=== PATIENT | female | born 1995 | race Hispanic/Latino ===

== ENCOUNTER 2018-04-20 13:51 | Inpatient (IN) | payer MEDICAID ==
[2018-04-20 13:59] VITALS: BMI 25.4
--- NOTE | 2018-04-20 14:03 | ED PDOC ---
Arrival/HPI - General Time Seen by Provider: 04/20/18 13:59 Historian: Patient - History of Present Illness Narrative History of Present Illness (Text): 04/20/18 14:30 22 year old female, whose PMH includes Crohns disease, who presents to the emergency department complaining of abdominal pain, mainly on the epigastric and lower abdominal region since 4 days. Patient associates this symptom with hematochezia and nausea, which is common for her due to PMH of Crohn's disease. Patient notes taking Prednisone daily and took Motrin this morning at 9 AM. Patient denies any vomiting, chest pain, shortness of breath, fever, chills, dysuria, hematuria, or other complaints. Time/Duration: < week Symptom Onset: Sudden Symptom Course: Unchanged Context: Home Past Medical History - Provider Review Nursing Documentation Reviewed: Yes Family/Social History - Physician Review Nursing Documentation Reviewed: Yes Family/Social History: Unknown Family HX Allergies/Home Meds Allergies/Adverse Reactions: Allergies No Known Allergies Allergy (Verified 04/20/18 14:29) Home Medications: Home Meds Medication Instructions Recorded Confirmed No Known Home Med 04/20/18 04/20/18 Review of Systems - Review of Systems Constitutional: absent: Fevers ENT: absent: Sinus Congestion Respiratory: absent: SOB Cardiovascular: absent: Chest Pain Gastrointestinal: Abdominal Pain (epigastric and lower abdomen ), Stool Changes , Nausea, Hematochezia. absent: Diarrhea, Vomiting Genitourinary Female: absent: Dysuria Musculoskeletal: absent: Back Pain Skin: absent: Rash Neurological: absent: Headache Endocrine: absent: Diaphoresis Physical Exam Vital Signs Reviewed: Yes Vital Signs Temp Pulse Resp BP Pulse Ox 04/20/18 18:36 100.4 F H 04/20/18 18:22 100.4 F H 82 18 125/71 99 04/20/18 15:51 79 18 127/79 99 04/20/18 14:10 98.4 F 82 18 129/89 99 04/20/18 13:58 98.4 F 82 18 129/89 99 Temperature: Afebrile Blood Pressure: Normal Pulse: Regular Respiratory Rate: Normal Appearance: Positive for: Well-Appearing, Non-Toxic, Comfortable Pain Distress: None Mental Status: Positive for: Alert and Oriented X 3 - Systems Exam Head: Present: Atraumatic, Normocephalic Pupils: Present: PERRL Extroacular Muscles: Present: EOMI Conjunctiva: Present: Normal Respiratory/Chest: Present: Clear to Auscultation, Good Air Exchange. No: Respiratory Distress, Accessory Muscle Use, Wheezes, Rales, Retracting, Rhonchi Cardiovascular: Present: Regular Rate and Rhythm, Normal S1, S2. No: Murmurs Abdomen: Present: Tenderness, Distention, Normal Bowel Sounds. No: Peritoneal Signs, Rebound, Guarding Neurological: Present: GCS=15, CN II-XII Intact, Speech Normal Skin: Present: Warm, Dry, Normal Color. No: Rashes Psychiatric: Present: Alert, Oriented x 3, Normal Insight, Normal Concentration Medical Decision Making ED Course and Treatment: 04/20/18 1 Impression: 22 year old female with diffused abdominal tenderness and distention complaining of abdominal pain and hematochezia since 4 days. Likely crohns flare. Plan: -- Labs -- Morphine, Toradol, Zofran, and Sodium Chloride -- Urinalysis -- Reassess and disposition Progress Notes: 18:00 ABX ordered empirically: flagyl 04/20/2018 18:17 Temp 100.5- tylenol ordered Abd/Pelvis CT IMPRESSION: Findings are most compatible with acute colitis involving the left hemicolon, sigmoid colon and rectum with reactive lymphadenopathy with the stated clinical history of Crohn's disease. Dictator: Radha Lucia MD Paged GI service x3 04/20/18 19:19 appreciate consult w/ GI fellow, we are to admit to hospitalist and start patient on +cipro additionally and home steroid dosage. Ordered. 04/20/18 19:34 appreciate consult w/ Dr. Pike: admitted to his service - Lab Interpretations Lab Results: 04/20/18 13:20 04/20/18 13:20 Lab Results 04/20/18 15:34: Lactic Acid 1.3 04/20/18 14:46: Urine Color Yellow, Urine Appearance Clear, Urine pH 6.5, Ur Specific [place] >= 1.030, Urine Protein Trace H, Urine Glucose (UA) Negative, Urine Ketones Negative, Urine Blood Negative, Urine Nitrate Negative, Urine Bilirubin Negative, Urine Urobilinogen 0.2, Ur Leukocyte Esterase Negative, Urine RBC Negative, Urine WBC 1 - 3, Ur Epithelial Cells 1 - 3, Urine Bacteria Few 04/20/18 13:20: Sodium 139, Potassium 3.9, Chloride 101, Carbon Dioxide 29, Anion Gap 13, BUN 10, Creatinine 0.7, Est GFR ( Amer) > 60, Est GFR (Non- Af Amer) > 60, Random Glucose 80, Calcium 8.8, Magnesium 1.8, Total Bilirubin 0.3, AST 22, ALT 16, Alkaline Phosphatase 68, Total Protein 7.2, Albumin 3.6, Globulin 3.6, Albumin/Globulin Ratio 1.0 L, Lipase < 10 L 04/20/18 13:20: WBC 15.5 H, RBC 3.63, Hgb 10.7 L, Hct 34.0 L, MCV 93.7, MCH 29.5 , MCHC 31.5, RDW 13.9, Plt Count 412, MPV 7.9, Gran % 52.0, Lymph % (Auto) 29.1 , [place] % (Auto) 18.0 H, Eos % (Auto) 0.8 L, Baso % (Auto) 0.1, Gran # 8.05 H, Lymph # (Auto) 4.5 H, [place] # (Auto) 2.8 H, Eos # (Auto) 0.1, Baso # (Auto) 0.02 I have reviewed the lab results: Yes - RAD Interpretation Radiology Orders: 04/20/18 16:40 ABD & PELVIS IV CONTRAST ONLY [CT] Stat - Medication Orders Current Medication Orders: Ciprofloxacin (Cipro 400mg/200ml Dsw) 400 mg in 200 mls @ 133.3 mls/hr IVPB STAT STA PRN Reason: Protocol Stop: 04/20/18 20:42 Discontinued Medications Acetaminophen (Tylenol 325mg Tab) 650 mg PO STAT STA Stop: 04/20/18 18:23 Last Admin: 04/20/18 18:36 Dose: 650 mg MAR Pain/Vitals Document 04/20/18 18:36 HI (Rec: 04/20/18 18:36 HI [email or web address]) Vitals Temperature (97.6 F-99.6 F) 100.4 F Temperature Source Oral Diphenhydramine HCl (Benadryl) 25 mg IVP STAT STA Stop: 04/20/18 18:23 Last Admin: 04/20/18 18:36 Dose: 25 mg IVP Administration Document 04/20/18 18:36 HI (Rec: 04/20/18 18:36 [place] [id number]) Charges for Administration # of IVP Administrations 1 Sodium Chloride (Sodium Chloride 0.9%) 1,000 mls @ 500 mls/hr IV .Q2H STA Stop: 04/20/18 16:40 Last Admin: 04/20/18 15:36 Dose: 500 mls/hr eMAR Start Stop Document 04/20/18 15:36 HI (Rec: 04/20/18 15:36 [place] [id number]) Intravenous Solution Start Date 04/20/18 Start Time 15:28 Metronidazole (Flagyl) 500 mg in 100 mls @ 100 mls/hr IVPB STAT STA PRN Reason: Protocol Stop: 04/20/18 18:39 Last Admin: 04/20/18 18:10 Dose: 100 mls/hr eMAR Start Stop Document 04/20/18 18:10 HI (Rec: 04/20/18 18:11 [place] [id number]) Intravenous Solution Start Date 04/20/18 Start Time 18:10 Ketorolac Tromethamine (Toradol) 30 mg IVP STAT STA Stop: 04/20/18 14:41 Last Admin: 04/20/18 15:28 Dose: 30 mg MAR Pain Assessment Document 04/20/18 15:28 HI (Rec: 04/20/18 15:35 [place] [id number]) Pain Reassessment Is this a pain reassessment? No Sleep Is patient sleeping during reassessment? No Presence of Pain Presence of Pain Yes Pain Scale Used Pain Scale Used Numeric Description Description Constant Intensity of Pain at present 9 Pain Behavior Facial Grimacing IVP Administration Document 04/20/18 15:28 HI (Rec: 04/20/18 15:35 [place] [id number]) Charges for Administration # of IVP Administrations 1 Re-Assess: MAR Pain Assessment Document 04/20/18 16:28 HI (Rec: 04/20/18 18:11 [place] [id number]) Pain Reassessment Is this a pain reassessment? Yes Sleep Is patient sleeping during reassessment? Yes Morphine Sulfate (Morphine) 4 mg IVP STAT STA Stop: 04/20/18 14:41 Last Admin: 04/20/18 15:28 Dose: 4 mg MAR Pain Assessment Document 04/20/18 15:28 HI (Rec: 04/20/18 15:36 [place] [id number]) Pain Reassessment Is this a pain reassessment? No Sleep Is patient sleeping during reassessment? No IVP Administration Document 04/20/18 15:28 HI (Rec: 04/20/18 15:36 [place] [id number]) Charges for Administration # of IVP Administrations 1 Re-Assess: MAR Pain Assessment Document 04/20/18 16:28 HI (Rec: 04/20/18 18:11 [place] [id number]) Pain Reassessment Is this a pain reassessment? Yes Sleep Is patient sleeping during reassessment? Yes Morphine Sulfate (Morphine) 4 mg IVP STAT STA Stop: 04/20/18 18:10 Last Admin: 04/20/18 18:10 Dose: 4 mg MAR Pain Assessment Document 04/20/18 18:10 HI (Rec: 04/20/18 18:10 [place] [id number]) Pain Reassessment Is this a pain reassessment? Yes Presence of Pain Presence of Pain Yes Location Pain Location Body Site Abdomen Description Description Sharp Intensity of Pain at present 9 Pain Behavior Crying Facial Grimacing IVP Administration Document 04/20/18 18:10 HI (Rec: 04/20/18 18:10 [place] [id number]) Charges for Administration # of IVP Administrations 1 Ondansetron HCl (Zofran Inj) 4 mg IVP STAT STA Stop: 04/20/18 14:41 Last Admin: 04/20/18 15:27 Dose: 4 mg IVP Administration Document 04/20/18 15:27 HI (Rec: 04/20/18 15:28 [place] [id number]) Charges for Administration # of IVP Administrations 1 Ondansetron HCl (Zofran Inj) 4 mg IVP STAT STA Stop: 04/20/18 15:56 Last Admin: 04/20/18 16:00 Dose: Not Given Non-Admin Reason: Patient Refused - Scribe Statement The provider has reviewed the documentation as recorded by the Scribe Tiera Albert Provider Scribe Attestation: All medical record entries made by the Scribe were at my direction and personally dictated by me. I have reviewed the chart and agree that the record accurately reflects my personal performance of the history, physical exam, medical decision making, and the department course for this patient. I have also personally directed, reviewed, and agree with the discharge instructions and disposition. Disposition/Present on Arrival - Present on Arrival Any Indicators Present on Arrival: No History of DVT/PE: No History of Uncontrolled Diabetes: No Urinary Catheter: No History of Decub. Ulcer: No - Disposition Have Diagnosis and Disposition been Completed?: Yes Diagnosis: Crohn's colitis Disposition: HOSPITALIZED Disposition Time: 18:20 Patient Problems: Current Active Problems Problem Status Onset Crohn's colitis Acute Condition: GOOD Referrals: [id number] [Other] - Follow up with primary
[2018-04-20] MEDS ORDERED: Morphine 4 mg/ml ISec IVP STA ×2 (14:40→18:09)
[2018-04-20] MEDS ORDERED: Sodium Chloride 0.9% 1,000 ML IV STA ×2 (14:41→19:34)
[2018-04-20 15:35] LABS: BASO # 0.02 K/mm3 (0.0-2.0); BASO % 0.1 % (0.0-3.0); EOS # 0.1 (0.0-0.7); EOS % 0.8 % (1.5-5.0); GRAN # 8.05 (1.4-6.5); HEMOGLOBIN 10.7 g/dL (12.0-16.0); LYMPH # 4.5 (1.2-3.4); LYMPH % 29.1 % (22.0-35.0); MEAN CELL VOLUME 93.7 fl (80.0-105.0); MEAN CORPUSCULAR HEMOGLOBIN 29.5 pg (25.0-35.0); MEAN CORPUSCULAR HGB CONC 31.5 g/dl (31.0-37.0); MEAN PLATELET VOLUME 7.9 fl (7.0-11.0); MONO # 2.8 (0.1-0.6); RBC 3.63 10^6/uL (3.5-6.1); RED CELL DISTRIBUTION WIDTH 13.9 % (11.5-14.5); WHITE BLOOD COUNT 15.5 10^3/ul (4.5-11.0)
[2018-04-20 15:44] LABS: PH,URINE 6.5 (4.7-8.0); URINE BILIRUBIN NEGATIVE (NEGATIVE); URINE BLOOD NEGATIVE (NEGATIVE); URINE GLUCOSE (UA) NEGATIVE (NEGATIVE); URINE LEUKOCYTE ESTERASE NEGATIVE Leu/uL (NEGATIVE); URINE PROTEIN TRACE mg/dL (<30 mg/dL); URINE UROBILINOGEN 0.2 E.U./dL (<1 E.U./dL)
[2018-04-20] MEDS ORDERED: Iohexol 240 (50 ml) ONE (15:44)
[2018-04-20 15:47] LABS: URINE APPEARANCE CLEAR (CLEAR); URINE COLOR YELLOW (YELLOW)
[2018-04-20 15:50] LABS: ALBUMIN 3.6 g/dL (3.0-4.8); ALT/SGPT 16 U/L (7-56); AST/SGOT 22 U/L (14-36); BLOOD UREA NITROGEN 10 mg/dL (7-21); CALCIUM 8.8 mg/dL (8.4-10.5); GFR AFRICAN-AMERICAN > 60; GFR NON-AFRICAN AMERICAN > 60
[2018-04-20 15:54] LABS: LIPASE < 10 U/L (23-300)
[2018-04-20 16:03] LABS: URINE RBC NEGATIVE /hpf (0-2)
[2018-04-20 16:04] LABS: URINE BACTERIA FEW (NEG)
[2018-04-20] MEDS ORDERED: Iohexol 350 MG/100 ML VIAL ONE (16:50)
[2018-04-20] MEDS ORDERED: metroNIDAZOLE IV 500 mg/100 ml 500 MG/100 ML BAG IVPB STA (17:40)
--- NOTE | 2018-04-20 18:19 | CT ---
Date of service: 04/20/2018 PROCEDURE: CT Abdomen and Pelvis with contrast HISTORY: Abdominal pain, hx of Crohn's COMPARISON: None. TECHNIQUE: CT scan of the abdomen and pelvis was performed after administration of intravenous contrast. Oral contrast was not administered. Coronal and sagittal reformatted images were obtained. Contrast dose: 95 mL Omnipaque 350 Radiation dose: Total exam DLP = 315.85 mGy-cm. This CT exam was performed using one or more of the following dose reduction techniques: Automated exposure control, adjustment of the mA and/or kV according to patient size, and/or use of iterative reconstruction technique. FINDINGS: LOWER THORAX: The visualized lungs are clear. LIVER: Normal in size with homogeneous enhancement. No gross lesion or ductal dilatation. GALLBLADDER AND BILE DUCTS: No calcified gallstones. PANCREAS: Normal in size with homogeneous enhancement. No gross lesion or ductal dilatation. SPLEEN: Borderline splenomegaly. ADRENALS: No discrete nodules. KIDNEYS AND URETERS: Normal in size with homogeneous enhancement. No hydronephrosis. No solid mass. VASCULATURE: No aortic aneurysm. BOWEL: The proximal small bowel loops are normal in caliber. There are mildly prominent fluid-filled distal small bowel loops. There is large amount of stool in the ascending and transverse colon. There is mild circumferential mural thickening and enhancement in fluid-filled descending colon, sigmoid colon and rectum. APPENDIX: Normal appendix. PERITONEUM: No free fluid. No free air. LYMPH NODES: There are prominent subcentimeter perirectal lymph nodes, and mesenteric lymph nodes in the left abdomen and pelvis. BLADDER: Unremarkable. REPRODUCTIVE: The uterus is normal in size. There is a 2.9 x 2.2 cm simple cyst in the left ovary. BONES: No acute fracture. OTHER FINDINGS: None. IMPRESSION: Findings are most compatible with acute colitis involving the left hemicolon, sigmoid colon and rectum with reactive lymphadenopathy with the stated clinical history of Crohn's disease.
[2018-04-20] MEDS ORDERED: DiphenhydrAMINE 50 mg/ml Inj IVP STA (18:22)
[2018-04-20] MEDS ORDERED: Ciprofloxacin 400mg/200ml D5W 400 MG/200 ML BAG IVPB STA (19:12)
--- NOTE | 2018-04-20 20:58 | CP.PCM.HP ---
<Gigi Wiley - Last Filed: 04/21/18 02:36> History of Present Illness - History of Present Illness History of Present Illness: Gigi Wiley PGY-1 History and Physical for Hospitalist Service CC: Abdominal pain HPI: Ms. Bhakta is a 22 year old female with a past medical history of Crohn' s Disease who presents with diffuse abdominal pain, nausea and bloody stool. Patient is in mild discomfort and lying down. Family is at bedside. Patient refused to provide a full medical history or be evaluated by the residents because patient reports that she has been examined enough. Limited evaluation was permitted to attending Dr. Pike alone. ROS unable to be attained. Per ER record: PMH: Crohn's Disease PSHx: Tonsillectomy All: NKDA Social: tobacco use, not quantified; denies ETOH and IVDU NO PMD Recent travel to [facility] Present on Admission - Present on Admission Any Indicators Present on Admission: No Review of Systems - Review of Systems Review of Systems: Unable to be attained due to patient refusal. Past Patient History - Past Social History Smoking Status: Current Some Days Smoker - GASTROINTESTINAL Hx Crohn's Disease: Yes - PSYCHIATRIC Hx Substance Use: No - SURGICAL HISTORY Hx Tonsillectomy: Yes - ANESTHESIA Hx Anesthesia: Yes Meds Allergies/Adverse Reactions: Allergies Allergy/AdvReac Type Severity Reaction Status Date / Time No Known Allergies Allergy Verified 04/20/18 14:29 Physical Exam - Constitutional Appears: Well, Non-toxic Additional comments: uncomfortable - Head Exam Head Exam: ATRAUMATIC, NORMAL INSPECTION, NORMOCEPHALIC - Eye Exam Eye Exam: EOMI, Normal appearance Pupil Exam: PERRL - ENT Exam ENT Exam: Mucous Membranes Moist - Neck Exam Neck exam: Positive for: Normal Inspection. Negative for: Lymphadenopathy - Respiratory Exam Respiratory Exam: Clear to Auscultation Bilateral, NORMAL BREATHING PATTERN - Cardiovascular Exam Cardiovascular Exam: RRR, +S1, +S2 - GI/Abdominal Exam GI & Abdominal Exam: Distended (mild in all 4 quadrants), Tenderness (diffuse). absent: Soft - Extremities Exam Extremities exam: Positive for: normal inspection. Negative for: calf tenderness - Back Exam Back exam: absent: CVA tenderness (L), CVA tenderness (R) - Neurological Exam Neurological exam: Alert, Oriented x3 - Psychiatric Exam Psychiatric exam: Agitated - Skin Skin Exam: Dry, Intact, Normal Color, Warm Results - Vital Signs Recent Vital Signs: Last Vital Signs Temp 100.4 F H 04/20/18 18:36 Pulse 82 04/20/18 18:22 Resp 18 04/20/18 18:22 BP 125/71 04/20/18 18:22 Pulse Ox 99 04/20/18 18:22 - Labs Result Diagrams: 04/20/18 13:20 04/20/18 13:20 Assessment & Plan - Assessment and Plan (Free Text) Assessment: Assessment: Ms. Bhakta is a 22 year old F who presents with abdominal pain, nausea, and bloody stool. Patient and family refused multiple requests to give further report of current complaints, past medical history, current mediations, or allow the residents to assess the patient. Plan: Sepsis 2/2 IBD Crohn's Disease flare vs UC Febrile at 100.4 on admission, leukocystosis 15.5, likely abdominal source of infection CT abdomen performed showed acute colitis in L hemicolon, sigmoid and rectum with reactive lymphadenopathy Received Cipro and Flagyl in ED in early evening, will resume next round of Cipro and Flagyl in AM Prednisone 60 mg Po NPO, NS @ 125 Zofran 4mg q6H for nausea Morphine 4 mg q4h PRN for pain f/u IBD differentiation order f/u c. diff toxin, ova and parasites, stool culture, FOBT f/u AM labs, Mg, Phos GI consult placed with Dr. Woodward for likely Crohn's flare Anemia likely 2/2 bloody stool Hgb 10.7 No baseline available f/u Fe, TIBC, Ferritin f/u peripheral smear f/u Retic Count GI/DVT Ppx Protonix IVP 40 Lovenox 40 sc daily Disposition: If patient amenable, please confirm details of medical, social, family history, medications, and pharmacy. Case reviewed and plan discussed with Dr. Pike. Gigi Wiley, PGY-1 <[place] Pike - Last Filed: 04/21/18 02:51> Results - Vital Signs Recent Vital Signs: Last Vital Signs Temp 98.1 F 04/21/18 02:00 Pulse 101 H 04/21/18 02:00 Resp 20 04/21/18 02:00 BP 103/64 04/21/18 02:00 Pulse Ox 98 04/21/18 02:00 - Labs Result Diagrams: 04/20/18 13:20 04/20/18 13:20 Attending/Attestation - Attestation I have personally seen and examined this patient.: Yes I have fully participated in the care of the patient.: Yes I have reviewed all pertinent clinical information: Yes Notes (Text): Pt not compliant with physical exam and history. This is most likely a crohn's flare up. WBC of 15.5. Abd is mildly softly distended. Cipro/flagyl Prednisone GI consult 04/21/18 02:48
[2018-04-20] MEDS ORDERED: Sodium Chloride 0.9% 1,000 ML IV SCH (21:15)
[2018-04-20] MEDS ORDERED: Ciprofloxacin 400mg/200ml D5W 400 MG/200 ML BAG IVPB SCH (22:00)
[2018-04-20] MEDS ORDERED: metroNIDAZOLE IV 500 mg/100 ml 500 MG/100 ML BAG IVPB SCH (22:00)
[2018-04-20] MEDS: Morphine 4 mg/ml ISec IVP PRN (22:40)
[2018-04-21] MEDS ORDERED: Sodium Chloride 0.9% 1,000 ML IV SCH ×2 (00:23→10:38)
[2018-04-21] MEDS: metroNIDAZOLE IV 500 mg/100 ml 500 MG/100 ML BAG IVPB SCH ×4 (01:47→20:59)
[2018-04-21] MEDS: Morphine 4 mg/ml ISec IVP PRN (04:09)
[2018-04-21 06:27] LABS: BASO # 0.01 K/mm3 (0.0-2.0); BASO % 0.1 % (0.0-3.0); EOS % 0.1 % (1.5-5.0); GRAN # 12.41 (1.4-6.5); GRAN % 75.8 % (50.0-68.0); HEMOGLOBIN 9.3 g/dL (12.0-16.0); LYMPH # 1.9 (1.2-3.4); LYMPH % 11.8 % (22.0-35.0); MEAN CELL VOLUME 92.5 fl (80.0-105.0); MEAN CORPUSCULAR HEMOGLOBIN 29.2 pg (25.0-35.0); MEAN CORPUSCULAR HGB CONC 31.6 g/dl (31.0-37.0); MEAN PLATELET VOLUME 7.8 fl (7.0-11.0); MONO % 12.2 % (1.0-6.0); PLATELET COUNT 361 10^3/uL (120.0-450.0); RBC 3.18 10^6/uL (3.5-6.1); RED CELL DISTRIBUTION WIDTH 13.8 % (11.5-14.5); WHITE BLOOD COUNT 16.4 10^3/ul (4.5-11.0)
[2018-04-21 06:36] LABS: IRON 27 ug/dL (45-180)
[2018-04-21 06:46] LABS: % IRON SATURATION 12 % (20-55); TOTAL IRON BINDING CAPACITY 236 ug/dL (265-497)
[2018-04-21 07:15] LABS: ALB/GLOB RATIO 0.9 (1.1-1.8); ALBUMIN 2.9 g/dL (3.0-4.8); ALT/SGPT 22 U/L (7-56); AST/SGOT 11 U/L (14-36); BLOOD UREA NITROGEN 8 mg/dL (7-21); GFR AFRICAN-AMERICAN > 60; GFR NON-AFRICAN AMERICAN > 60
[2018-04-21] MEDS ORDERED: Morphine 2 mg/ml ISec IVP PRN (07:16)
--- NOTE | 2018-04-21 09:50 | CP.PCM.CON ---
<Josephine Larios - Last Filed: 04/21/18 12:47> History of Present Illness - History of Present Illness History of Present Illness: GI Fellow PGY5 Consult Note This is a 22 year old female with a past medical history of Crohn's Disease and heroin abuse quite 3yrs ago who is presenting with complaints of lower abdominal pain, nausea, diarrhea and bloody stool progressively worsening over one month. Pt reports she started having these symptoms amonthago and saw a [facility] doctor [facility] and was prescribe ciprofloxacin and prednisone 60mg and was tapering down to 30mg daily, soon after finishing her ciprofloxacin her symptoms returned and are persistent. Pt reports he was prescribed lialda 2 yrs ago but has not taken it as she has been asymptomatic until now. Per pt's mom at bedside, pt was diagnosed at age 12 initially with UC but the Crohns, she had multiple flares and admission at that time for similar complaints and colonoscopies. At one point she also received blood transfusions for anemia and rectal bleeding. Her last admission was two years ago for a crohn's flare when she had her last colonoscopy which per pt showed alot of inflammation and incomplete colonoscopy. Pt currently reports abdominal pain radiating to back, diarrhea with blood 5 times a day but mostly tenesmus. She also reports fevers, chills, nausea but no vomiting. She has a history of skin manifestations described as erythema nodosom per mom, currently no rash or lesions, no joint pain, no oral ulcers, no uveitis. ROS: A 12pt ROS was negative except as above PMH: As stated above PSH: Tonsillectomy SH: Tobacco use, denies ETOH, hx of heroine quite 3yrs ago on methadone now Past Patient History - Past Social History Smoking Status: Current Some Days Smoker - CARDIAC Hx Cardiac Disorders: No - PULMONARY Hx Respiratory Disorders: No - NEUROLOGICAL Hx Neurological Disorder: No - HEENT Hx HEENT Problems: No - RENAL Hx Chronic Kidney Disease: No - ENDOCRINE/METABOLIC Hx Endocrine Disorders: No - HEMATOLOGICAL/ONCOLOGICAL Hx Blood Disorders: No - INTEGUMENTARY Hx Dermatological Problems: No - MUSCULOSKELETAL/RHEUMATOLOGICAL Hx Musculoskeletal Disorders: No Hx Falls: No - GASTROINTESTINAL Hx Crohn's Disease: Yes - GENITOURINARY/GYNECOLOGICAL Hx Genitourinary Disorders: No - PSYCHIATRIC Hx Substance Use: No - SURGICAL HISTORY Hx Tonsillectomy: Yes - ANESTHESIA Hx Anesthesia: Yes Meds Allergies/Adverse Reactions: Allergies Allergy/AdvReac Type Severity Reaction Status Date / Time No Known Allergies Allergy Verified 04/20/18 14:29 - Medications Medications: Current Medications Enoxaparin Sodium (Lovenox) 40 mg SC DAILY [facility] PRN Reason: Protocol Sodium Chloride (Sodium Chloride 0.9%) 1,000 mls @ 150 mls/hr IV .Q6H40M [facility] Last Admin: 04/21/18 04:10 Dose: 150 mls/hr Metronidazole (Flagyl) 500 mg in 100 mls @ 100 mls/hr IVPB Q8 [facility] PRN Reason: Protocol Last Admin: 04/21/18 05:42 Dose: 100 mls/hr Levofloxacin/Dextrose (Levaquin 500mg) 500 mg in 100 mls @ 100 mls/hr IVPB DAILY [facility] PRN Reason: Protocol Methadone HCl (Methadone) 170 mg PO DAILY [facility] Morphine Sulfate (Morphine) 2 mg IVP Q4H PRN PRN Reason: Pain, severe (8-10) Last Admin: 04/21/18 07:50 Dose: 2 mg Ondansetron HCl (Zofran Inj) 4 mg IVP Q6H PRN PRN Reason: Nausea/Vomiting Last Admin: 04/21/18 07:50 Dose: 4 mg Pantoprazole Sodium (Protonix Inj) 40 mg IVP DAILY [facility] Prednisone (Prednisone Tab) 60 mg PO DAILY [facility] Physical Exam - Constitutional Appears: Non-toxic, In Acute Distress, Agitated - Head Exam Head Exam: ATRAUMATIC, NORMAL INSPECTION, NORMOCEPHALIC - Eye Exam Eye Exam: EOMI, Normal appearance, PERRL Pupil Exam: PERRL - ENT Exam ENT Exam: Mucous Membranes Moist - Neck Exam Neck exam: Positive for: Full Rom, Normal Inspection - Respiratory Exam Respiratory Exam: Clear to Auscultation Bilateral, NORMAL BREATHING PATTERN - Cardiovascular Exam Cardiovascular Exam: Tachycardia, +S1, +S2 - GI/Abdominal Exam GI & Abdominal Exam: Distended, Normal Bowel Sounds, Tenderness. absent: Firm, Guarding, Organomegaly, Rigid - Rectal Exam Rectal Exam: Deferred - Extremities Exam Extremities exam: Positive for: full ROM, normal inspection. Negative for: pedal edema, tenderness - Back Exam Back exam: NORMAL INSPECTION - Neurological Exam Neurological exam: Alert, Oriented x3 - Psychiatric Exam Psychiatric exam: Agitated, Anxious - Skin Skin Exam: Dry, Intact, Normal Color, Warm Results - Vital Signs Recent Vital Signs: Last Vital Signs Temp 98.3 F 04/21/18 08:11 Pulse 98 H 04/21/18 08:11 Resp 16 04/21/18 08:11 BP 97/60 L 04/21/18 08:11 Pulse Ox 98 04/21/18 08:11 - Labs Result Diagrams: 04/21/18 05:30 04/21/18 05:30 Labs: Laboratory Results - last 24 hr 04/21/18 04/21/18 04/21/18 05:30 05:30 05:30 WBC 16.4 H RBC 3.18 L Hgb 9.3 L Hct 29.4 L MCV 92.5 MCH 29.2 MCHC 31.6 RDW 13.8 Plt Count 361 MPV 7.8 Gran % 75.8 H Lymph % (Auto) 11.8 L [place] % (Auto) 12.2 H Eos % (Auto) 0.1 L Baso % (Auto) 0.1 Gran # 12.41 H Lymph # (Auto) 1.9 [place] # (Auto) 2.0 H Eos # (Auto) 0.0 Baso # (Auto) 0.01 ESR 60 H Retic Count 2.96 H Sodium 136 Potassium 3.9 Chloride 101 Carbon Dioxide 26 Anion Gap 13 BUN 8 Creatinine 0.5 L Est GFR ( Amer) > 60 Est GFR (Non-Af Amer) > 60 Random Glucose 106 Lactic Acid Calcium 8.0 L Phosphorus 4.1 Magnesium 1.7 Iron 27 L TIBC 236 L % Saturation 12 L Total Bilirubin 0.3 AST 11 L D ALT 22 Alkaline Phosphatase 64 Total Protein 6.0 Albumin 2.9 L Globulin 3.2 Albumin/Globulin Ratio 0.9 L 04/21/18 06:00 WBC RBC Hgb Hct MCV MCH MCHC RDW Plt Count MPV Gran % Lymph % (Auto) [place] % (Auto) Eos % (Auto) Baso % (Auto) Gran # Lymph # (Auto) [place] # (Auto) Eos # (Auto) Baso # (Auto) ESR Retic Count Sodium Potassium Chloride Carbon Dioxide Anion Gap BUN Creatinine Est GFR ( Amer) Est GFR (Non-Af Amer) Random Glucose Lactic Acid 0.8 Calcium Phosphorus Magnesium Iron TIBC % Saturation Total Bilirubin AST ALT Alkaline Phosphatase Total Protein Albumin Globulin Albumin/Globulin Ratio Assessment & Plan - Assessment and Plan (Free Text) Assessment: This is a 22yF with a hx of crohn's disease presenting with abdominal pain, bloody diarrhea, and fevers. 1. Acute Colitis 2. Acute Crohn's 3. SIRS 4. Hx of constipation Plan: -Continue supportive care with pain control and anti-emetics -IVF hydration -Stool studies -IV abx -Advance to clear liquid diet -CT imaging reviewed with left sided mural thickening -IV steroids 20bid, taper to daily and tehn po prior to discharge -She can take home cannasa suppository for left sided colitis -DVT prophylaxis -At home will need bowel regimen with mirlaax, fiber daily with chronic methadone use -Pt will need close outpt followup with colonoscopy and maintenance medication for IBD -Will continue to follow pt closely <Florencio Jauregui - Last Filed: 04/21/18 13:14> Meds - Medications Medications: Current Medications Acetaminophen (Tylenol 325mg Tab) 650 mg PO Q6H PRN PRN Reason: Pain, moderate (4-7) Enoxaparin Sodium (Lovenox) 40 mg SC DAILY [facility] PRN Reason: Protocol Metronidazole (Flagyl) 500 mg in 100 mls @ 100 mls/hr IVPB Q8 [facility] PRN Reason: Protocol Last Admin: 04/21/18 05:42 Dose: 100 mls/hr Ceftriaxone Sodium (Rocephin 1 Gram Ivpb) 1 gm in 100 mls @ 100 mls/hr IVPB DAILY [facility] PRN Reason: Protocol Sodium Chloride (Sodium Chloride 0.9%) 1,000 mls @ 100 mls/hr IV .Q10H [facility] Mesalamine (Asacol Hd 800mg) 800 mg PO TID [facility] Mesalamine (Rowasa Enema) 4 gm RC HS [facility] Methadone HCl (Methadone) 170 mg PO DAILY [facility] Last Admin: 04/21/18 09:30 Dose: 170 mg Morphine Sulfate (Morphine) 2 mg IVP Q4H PRN PRN Reason: Pain, severe (8-10) Last Admin: 04/21/18 12:04 Dose: 2 mg Ondansetron HCl (Zofran Inj) 4 mg IVP Q6H PRN PRN Reason: Nausea/Vomiting Last Admin: 08/16/18 07:50 Dose: 4 mg Prednisone (Prednisone Tab) 60 mg PO DAILY [facility] Last Admin: 04/21/18 09:30 Dose: 60 mg Results - Vital Signs Recent Vital Signs: Last Vital Signs Temp 98.3 F 04/21/18 08:11 Pulse 98 H 04/21/18 08:11 Resp 16 04/21/18 08:11 BP 97/60 L 04/21/18 08:11 Pulse Ox 98 04/21/18 08:11 - Labs Result Diagrams: 04/21/18 05:30 04/21/18 05:30 Labs: Laboratory Results - last 24 hr 04/21/18 04/21/18 04/21/18 05:30 05:30 05:30 WBC 16.4 H RBC 3.18 L Hgb 9.3 L Hct 29.4 L MCV 92.5 MCH 29.2 MCHC 31.6 RDW 13.8 Plt Count 361 MPV 7.8 Gran % 75.8 H Lymph % (Auto) 11.8 L [place] % (Auto) 12.2 H Eos % (Auto) 0.1 L Baso % (Auto) 0.1 Gran # 12.41 H Lymph # (Auto) 1.9 [place] # (Auto) 2.0 H Eos # (Auto) 0.0 Baso # (Auto) 0.01 Differential Comment See pathology report ESR 60 H Retic Count 2.96 H Sodium 136 Potassium 3.9 Chloride 101 Carbon Dioxide 26 Anion Gap 13 BUN 8 Creatinine 0.5 L Est GFR ( Amer) > 60 Est GFR (Non-Af Amer) > 60 Random Glucose 106 Lactic Acid Calcium 8.0 L Phosphorus 4.1 Magnesium 1.7 Iron 27 L TIBC 236 L % Saturation 12 L Ferritin 65.4 Total Bilirubin 0.3 AST 11 L D ALT 22 Alkaline Phosphatase 64 Total Protein 6.0 Albumin 2.9 L Globulin 3.2 Albumin/Globulin Ratio 0.9 L Vitamin B12 251 Folate 8.7 04/21/18 06:00 WBC RBC Hgb Hct MCV MCH MCHC RDW Plt Count MPV Gran % Lymph % (Auto) [place] % (Auto) Eos % (Auto) Baso % (Auto) Gran # Lymph # (Auto) [place] # (Auto) Eos # (Auto) Baso # (Auto) Differential Comment ESR Retic Count Sodium Potassium Chloride Carbon Dioxide Anion Gap BUN Creatinine Est GFR ( Amer) Est GFR (Non-Af Amer) Random Glucose Lactic Acid 0.8 Calcium Phosphorus Magnesium Iron TIBC % Saturation Ferritin Total Bilirubin AST ALT Alkaline Phosphatase Total Protein Albumin Globulin Albumin/Globulin Ratio Vitamin B12 Folate Attending/Attestation - Attestation I have personally seen and examined this patient.: Yes I have fully participated in the care of the patient.: Yes I have reviewed all pertinent clinical information: Yes Notes (Text): 04/21/18 13:04 I have seen and examined patient with GI fellow. Agree with above documentation with the following additions. In brief, this is a 22 year old female with history of substance abuse on methadone, chronic constipation, crohn 's disease diagnosed 10 years ago who presents to hospital with complaint of abdominal pain and diarrhea. Symptoms have been getting progressively worse over the past one month. She reports using Azithromycin for a tooth infection one week ago. She describes multiple hospitalizations for disease "flares" throughout the past several years requiring doses of steroid therapy. For the past 2 years she has been medication free, prior to this was taking Lialda during disease exacerbations. She is biologic and immunomodulator therapy naive. She reports sharp 8/10 intensity b/l lower quadrant abdominal pain that is worse with movement and associated with nausea. She denies nausea, vomiting , diarrhea, weight loss, skin rash, oral ulcers, joint pains. She typically has a bowel movement once every 2-3 days, while in hospital only scant bloody discharge. Her last colonoscopy was two years ago which was "incomplete" due to significant inflammation as per patient. Family history: reviewed, patient denies history of GI malignancy History of substance abuse on methadone Chronic constipation Inflammatory bowel disease - unclear regarding initial crohn's diagnosis CT imaging reviewed by me showing significant fecal retention in right colon, mural wall thickening of descending/sigmoid colon - Liquid diet as tolerated - Continue with IV antibiotic therapy, consider adding empiric therapy for c- difficile - Obtain blood and stool cultures - Continue with IV steroid therapy solumedrol 20 mg IV q12h - Obtain fecal calprotectin - Following hospital discharge, patient to follow up with primary GI physician at [facility]. Will continue to monitor patient clinical course.
[2018-04-21] MEDS ORDERED: levoFLOXacin 500 mg in D5W 500 MG/100 ML BAG IVPB SCH (10:00)
[2018-04-21] MEDS ORDERED: Enoxaparin 40 mg Syringe SC SCH (10:00)
[2018-04-21] MEDS: Morphine 2 mg/ml ISec IVP PRN ×3 (12:04→20:56)
[2018-04-21 12:20] LABS: FERRITIN 65.4 ng/mL
[2018-04-21 12:50] LABS: FOLATE 8.7 ng/mL
--- NOTE | 2018-04-21 13:50 | CP.PCM.PN ---
<Benja Ramos - Last Filed: 04/21/18 15:30> Subjective - Date & Time of Evaluation Date of Evaluation: 04/21/18 Time of Evaluation: 08:00 - Subjective Subjective: Internal Medicine Progress Note for Dr. Lacy Ramos PGY1 22F seen and evaluated at bedside this morning. No acute events overnight. Patient continues to complain of abdominal pain radiating through to the back described as someone "punching her stomach." She feels nauseous. Patient states 2 days ago was last episode of bloody bowel movement. She had a regular, soft bowel movement this morning with no blood. Denies black or tarry stools, denies mucous in the stool. Denies vomiting, fever, chills, shortness of breath, chest pain, palpitations, cough, or urinary symptoms. Objective - Vital Signs/Intake and Output Vital Signs (last 24 hours): Temp Pulse Resp BP Pulse Ox 98.3 F 98 H 16 97/60 L 98 04/21/18 08:11 04/21/18 08:11 04/21/18 08:11 04/21/18 08:11 04/21/18 08:11 - Medications Medications: Current Medications Acetaminophen (Tylenol 325mg Tab) 650 mg PO Q6H PRN PRN Reason: Pain, moderate (4-7) Enoxaparin Sodium (Lovenox) 40 mg SC DAILY [facility] PRN Reason: Protocol Metronidazole (Flagyl) 500 mg in 100 mls @ 100 mls/hr IVPB Q8 [facility] PRN Reason: Protocol Last Admin: 04/21/18 05:42 Dose: 100 mls/hr Ceftriaxone Sodium (Rocephin 1 Gram Ivpb) 1 gm in 100 mls @ 100 mls/hr IVPB DAILY [facility] PRN Reason: Protocol Sodium Chloride (Sodium Chloride 0.9%) 1,000 mls @ 100 mls/hr IV .Q10H [facility] Methylprednisolone 20 gm/ (Sodium Chloride) 250 mls @ 500 mls/hr IV Q12 [facility] Methadone HCl (Methadone) 170 mg PO DAILY [facility] Last Admin: 04/21/18 09:30 Dose: 170 mg Morphine Sulfate (Morphine) 2 mg IVP Q4H PRN PRN Reason: Pain, severe (8-10) Last Admin: 04/21/18 12:04 Dose: 2 mg Ondansetron HCl (Zofran Inj) 4 mg IVP Q6H PRN PRN Reason: Nausea/Vomiting Last Admin: 04/21/18 07:50 Dose: 4 mg - Labs Labs: 04/21/18 05:30 04/21/18 05:30 - Constitutional Appears: Well, Non-toxic, No Acute Distress - Head Exam Head Exam: ATRAUMATIC, NORMAL INSPECTION, NORMOCEPHALIC - Eye Exam Eye Exam: EOMI, PERRL - ENT Exam ENT Exam: Mucous Membranes Moist - Respiratory Exam Respiratory Exam: Clear to Ausculation Bilateral, NORMAL BREATHING PATTERN. absent: Wheezes - Cardiovascular Exam Cardiovascular Exam: REGULAR RHYTHM, +S1, +S2. absent: Murmur - GI/Abdominal Exam GI & Abdominal Exam: Guarding, Soft, Tenderness, Normal Bowel Sounds. absent: Distended, Mass, Rebound - Rectal Exam Additional comments: Patient refused - Neurological Exam Neurological Exam: Alert, Awake, Oriented x3 - Psychiatric Exam Psychiatric exam: Normal Affect, Normal Mood - Skin Skin Exam: Dry, Warm Assessment and Plan - Assessment and Plan (Free Text) Assessment: 22F, PMH of Crohn's disease and Heroin abuse, presenting with diffuse abdominal pain, nausea, and fevers. Plan: 1. Abdominal Pain, Nausea, and Fevers - Ulcerative colitis vs. Crohn's flare up - CT Abd/Pel: acute colitis involving left hemicolon, sigmoid, and rectum with reactive lymphadenopathy - Afebrile now, Tmax of 101.3 - Leukocytosis 16 likely secondary to steroids vs. an infectious process - Started on Rocephin 04/22 and continue Flagyl - Discontinued Levaquin 04/21 - IV Solumedrol per GI - Morphine 2mg Q4 and Tylenol 650mg for pain control - Zofran 4mg PRN - Advanced to full liquid diet per GI - Decreased NS to 100cc/hr - Pending C.diff toxin, fecal Calprotectin, Stool cultures, Ova and Parasites - Pending IBD differentiation - Pending PT evaluation secondary to deconditioning - GI, Dr. Jauregui consulted, recommendations appreciated: home cannasa suppositories for left sided colitis, miralax and fiber daily, outpatient follow up with colonoscopy and maintenance medication for IBD - Discontinued telemetry 2. Anemia - Likely secondary to GI bleed vs. Anemia of chronic disease vs. Iron deficiency - Hgb 9.3 today - Continue to monitor H/H - Reticuloycte count elevated 2.96 - Iron 27 (low), TIBC 236 (low), %Sat 12 (low) - B12 and folate within normal limits - Discontinued Lovenox and ordered SCDs secondary to bleeding risk 3. Hx of IVDA - Methadone 170mg - Urine drug screen pending GI: protonix DVT: SCDs Diet: Full liquid Case reviewed and plan discussed with Dr. Sumit Ramos PGY1 <Lacy Arana R - Last Filed: 04/23/18 11:23> Objective - Vital Signs/Intake and Output Vital Signs (last 24 hours): Temp Pulse Resp BP Pulse Ox 98.5 F 71 20 104/62 99 04/22/18 08:12 04/22/18 08:12 04/22/18 08:12 04/22/18 08:12 04/22/18 08:12 - Labs Labs: 04/22/18 06:30 04/22/18 06:30 Attending/Attestation - Attestation I have personally seen and examined this patient.: Yes I have fully participated in the care of the patient.: Yes I have reviewed all pertinent clinical information, including history, physical exam and plan: Yes Notes (Text): Patient seen and examined by me at 11:15AM with resident 04/21/18. Case including HPI, physical exam, and assessment and plan discussed with resident. Agree with above with following additions/corrections. Patient is a 22 year old female with past medical history significant for Crohn' s disease that presented to the emergency room with abdominal pain, nausea, and bloody stool. Patient states that she is feeling better. Still having abdominal pain radiating to the back. Pain medications are helping. States that she thinks this started after she was taking Zpack for an infection. She did have a soft bowel movement this AM that was non-bloody. Still with nausea. No vomiting. No chest pain or shortness of breath. No fevers or chills. No headaches or dizziness. No dysuria. Physical exam: Gen: Awake and alert sitting up in chair in no acute distress HEENT: Normocephalic, atraumatic. Extraocular muscles intact, pupils equal reactive. No scleral icterus. Oropharynx is pink and moist. Neck is supple. Cardiovascular: Normal rhythm. Normal S1, S2. No murmurs, rubs, or gallops appreciated Pulmonary: Normal respiratory effort. No rhonchi, rales or wheezing appreciated. Gastrointestinal: Soft, positive generalized tenderness, nondistended, positive bowel sounds all 4 quadrants, no guarding. Musculoskeletal: Normal range of motion all extremities. No calf tenderness. No edema appreciated. Central nervous system: AAO x 3. CN 2-12 grossly intact. Dermatologic: Skin warm and dry Assessment and plan: Patient is a 22 year old female with past medical history significant for Crohn's disease that presented to the emergency room with abdominal pain, nausea, and bloody stool. 1. Abdominal pain. Fever. Colitis. CT abd/pelvis per radiologist shows acute colitis involving the left hemicolon, sigmoid colon and rectum with reactive lympadenopathy. Afebrile now. Leukocytosis downtrending. Continue Rocephin and Flagyl. Continue Solumedrol. Diet advanced. GI following, recommendations appreciated. Zofran prn. 2. Anemia. Likely secondary to iron deficiency. Patient advised to take over the counter iron and follow up with PMD. 3. History of drug abuse. Patient is on methadone at home, dose confirmed with patient's methadone clinic. Case was discussed in detail with the patient regarding current diagnosis and treatment plan
[2018-04-21] MEDS ORDERED: Mesalamine 800 mg DR Tab PO SCH (14:00)
[2018-04-21 17:06] VITALS: RESP 20
[2018-04-21] MEDS ORDERED: DiphenhydrAMINE 12.5 mg/5 ml LIQ UD (5 ml) PO STA (21:40)
[2018-04-21] MEDS ORDERED: SODIUM CHLORIDE 0.9% IV SCH (22:00)
[2018-04-21] MEDS ORDERED: METHYLPREDNISOLONE IV SCH (22:00)
[2018-04-21] MEDS: MethylPREDNISolone 40 mg Vial IV SCH (22:47)
[2018-04-22] MEDS: Morphine 2 mg/ml ISec IVP PRN ×2 (01:43→08:28)
[2018-04-22] MEDS: metroNIDAZOLE IV 500 mg/100 ml 500 MG/100 ML BAG IVPB SCH (05:54)
[2018-04-22 07:18] LABS: BASO # 0.02 K/mm3 (0.0-2.0); BASO % 0.2 % (0.0-3.0); EOS % 0.1 % (1.5-5.0); GRAN # 8.71 (1.4-6.5); GRAN % 65.5 % (50.0-68.0); HEMOGLOBIN 9.2 g/dL (12.0-16.0); LYMPH # 2.6 (1.2-3.4); LYMPH % 19.7 % (22.0-35.0); MEAN CELL VOLUME 91.8 fl (80.0-105.0); MEAN CORPUSCULAR HGB CONC 31.6 g/dl (31.0-37.0); MEAN PLATELET VOLUME 7.8 fl (7.0-11.0); MONO # 1.9 (0.1-0.6); MONO % 14.5 % (1.0-6.0); RBC 3.17 10^6/uL (3.5-6.1); RED CELL DISTRIBUTION WIDTH 13.7 % (11.5-14.5); WHITE BLOOD COUNT 13.3 10^3/ul (4.5-11.0)
[2018-04-22 07:26] LABS: ALB/GLOB RATIO 0.9 (1.1-1.8); ALBUMIN 2.9 g/dL (3.0-4.8); ALT/SGPT 19 U/L (7-56); AST/SGOT 20 U/L (14-36); BLOOD UREA NITROGEN 9 mg/dL (7-21); CALCIUM 8.6 mg/dL (8.4-10.5); GFR AFRICAN-AMERICAN > 60; GFR NON-AFRICAN AMERICAN > 60
[2018-04-22 08:13] VITALS: BP 104/62; PULSE 71; TEMP 98.5; O2SAT 99
[2018-04-22] MEDS ORDERED: cefTRIAXone 1 gm 1 GM/100 ML BAG IVPB SCH (10:00)
[2018-04-22] MEDS: MethylPREDNISolone 40 mg Vial IV SCH (10:12)
[2018-04-22] MEDS ORDERED: POLYETHYLENE GLYCOL 3350 17 GM/Dose PACKET PO ONE (11:00)
--- NOTE | 2018-04-22 17:28 | CP.PCM.DIS ---
<Isabel Otoole - Last Filed: 04/22/18 17:30> Provider - Provider Date of Admission: 04/20/18 19:46 Attending physician: Torres Thurman MD Primary care physician: Andrea Singh Consults: GI Time Spent in preparation of Discharge (in minutes): 70 Hospital Course - Lab Results Lab Results: Micro Results 04/21/18 14:10 Blood-Venous Blood Culture - Preliminary NO GROWTH AFTER 24 HOURS Most Recent Lab Values WBC 13.3 10^3/ul (4.5-11.0) H 04/22/18 06:30 RBC 3.17 10^6/uL (3.5-6.1) L 04/22/18 06:30 Hgb 9.2 g/dL (12.0-16.0) L 04/22/18 06:30 Hct 29.1 % (36.0-48.0) L 04/22/18 06:30 MCV 91.8 fl (80.0-105.0) 04/22/18 06:30 MCH 29.0 pg (25.0-35.0) 04/22/18 06:30 MCHC 31.6 g/dl (31.0-37.0) 04/22/18 06:30 RDW 13.7 % (11.5-14.5) 04/22/18 06:30 Plt Count 357 10^3/uL (120.0-450.0) 04/22/18 06:30 MPV 7.8 fl (7.0-11.0) 04/22/18 06:30 Gran % 65.5 % (50.0-68.0) 04/22/18 06:30 Lymph % (Auto) 19.7 % (22.0-35.0) L 04/22/18 06:30 [place] % (Auto) 14.5 % (1.0-6.0) H 04/22/18 06:30 Eos % (Auto) 0.1 % (1.5-5.0) L 04/22/18 06:30 Baso % (Auto) 0.2 % (0.0-3.0) 04/22/18 06:30 Gran # 8.71 (1.4-6.5) H 04/22/18 06:30 Lymph # (Auto) 2.6 (1.2-3.4) 04/22/18 06:30 [place] # (Auto) 1.9 (0.1-0.6) H 04/22/18 06:30 Eos # (Auto) 0.0 (0.0-0.7) 04/22/18 06:30 Baso # (Auto) 0.02 K/mm3 (0.0-2.0) 04/22/18 06:30 Differential Comment See pathology report 04/21/18 05:30 ESR 60 mm/hr (0.0-20.0) H 04/21/18 05:30 Retic Count 2.96 % (0.5-1.5) H 04/21/18 05:30 Sodium 138 mmol/L (132-148) 04/22/18 06:30 Potassium 4.0 mmol/L (3.6-5.0) 04/22/18 06:30 Chloride 102 mmol/L (98-107) 04/22/18 06:30 Carbon Dioxide 29 mmol/L (21-33) 04/22/18 06:30 Anion Gap 12 (10-20) 04/22/18 06:30 BUN 9 mg/dL (7-21) 04/22/18 06:30 Creatinine 0.5 mg/dl (0.7-1.2) L 04/22/18 06:30 Est GFR ( Amer) > 60 04/22/18 06:30 Est GFR (Non-Af Amer) > 60 04/22/18 06:30 Random Glucose 122 mg/dL (70-110) H 04/22/18 06:30 Lactic Acid 0.8 mmol/L (0.7-2.1) 04/21/18 06:00 Calcium 8.6 mg/dL (8.4-10.5) 04/22/18 06:30 Phosphorus 4.1 mg/dL (2.5-4.5) 04/21/18 05:30 Magnesium 1.7 mg/dL (1.7-2.2) 04/21/18 05:30 Iron 27 ug/dL (45-180) L 04/21/18 05:30 TIBC 236 ug/dL (265-497) L 04/21/18 05:30 % Saturation 12 % (20-55) L 04/21/18 05:30 Ferritin 65.4 ng/mL 04/21/18 05:30 Total Bilirubin 0.2 mg/dL (0.2-1.3) 04/22/18 06:30 AST 20 U/L (14-36) 04/22/18 06:30 ALT 19 U/L (7-56) 04/22/18 06:30 Alkaline Phosphatase 58 U/L (38-126) 04/22/18 06:30 Total Protein 6.1 g/dL (5.8-8.3) 04/22/18 06:30 Albumin 2.9 g/dL (3.0-4.8) L 04/22/18 06:30 Globulin 3.2 gm/dL 04/22/18 06:30 Albumin/Globulin Ratio 0.9 (1.1-1.8) L 04/22/18 06:30 Lipase < 10 U/L (23-300) L 04/20/18 13:20 Vitamin B12 251 pg/mL (239-931) 04/21/18 05:30 Folate 8.7 ng/mL 04/21/18 05:30 Urine Color Yellow (YELLOW) 04/20/18 14:46 Urine Appearance Clear (CLEAR) 04/20/18 14:46 Urine pH 6.5 (4.7-8.0) 04/20/18 14:46 Ur Specific [place] >= 1.030 (1.005-1.035) 04/20/18 14:46 Urine Protein Trace mg/dL (<30 mg/dL) H 04/20/18 14:46 Urine Glucose (UA) Negative mg/dL (NEGATIVE) 04/20/18 14:46 Urine Ketones Negative mg/dL (NEGATIVE) 04/20/18 14:46 Urine Blood Negative (NEGATIVE) 04/20/18 14:46 Urine Nitrate Negative (NEGATIVE) 04/20/18 14:46 Urine Bilirubin Negative (NEGATIVE) 04/20/18 14:46 Urine Urobilinogen 0.2 E.U./dL (<1 E.U./dL) 04/20/18 14:46 Ur Leukocyte Esterase Negative Mita/uL (NEGATIVE) 04/20/18 14:46 Urine RBC Negative /hpf (0-2) 04/20/18 14:46 Urine WBC 1 - 3 /hpf (0-6) 04/20/18 14:46 Ur Epithelial Cells 1 - 3 /hpf (0-5) 04/20/18 14:46 Urine Bacteria Few (NEG) 04/20/18 14:46 - Hospital Course Hospital Course: Ms. Bhakta is a 22F w/ PMH of Ulcerative Colitis and IVDA presented to the ED on 04/20/18 with two weeks of non radiating lower abdominal pain with associated nausea and bloody stools. Patient denied fever, chills, vomiting. Patient described a history of similar symptoms due to flare-ups from her Ulcerative colitis. She had not been following up with a GI physician regularly since she was diagnosed Patient was seen in ED and placed on an NPO diet. IVF initiated. Labs were ordered and patient was given Morphine, Toradol, Zofran. Pt was febrile at 100.4. Pt was admitted for colitis. CT abdomen showed acute colitis in L hemicolon, sigmoid and rectum with reactive lymphadenopathy. GI was consulted and recommended supportive care and advancing diet. They also started pt on solumedrol 20mg BID and flagyl and rocephin. Patient was able to tolerate food. She reported mild improvement of abdominal pain but denied any bowel movements. She was afebrile. GI recommended discharge with colace, miralax, nezium, prednisone 60mg taper over 6 weeks, and cannasa suppository. They recommended outpatient follow up for colonoscopy. Patient was also discharged with 3 days tramadol for pain, and Cipro for 5 days. Upon discharge, instructions on follow up and medications were given to the patient. Patient comprehended, and agreed. Discharge Exam - Head Exam Head Exam: ATRAUMATIC, NORMAL INSPECTION, NORMOCEPHALIC - Eye Exam Eye Exam: EOMI, PERRL Pupil Exam: NORMAL ACCOMODATION - ENT Exam ENT Exam: Mucous Membranes Moist - Respiratory Exam Respiratory Exam: Clear to PA & Lateral, NORMAL BREATHING PATTERN. absent: Rales, Rhonchi, Wheezes - Cardiovascular Exam Cardiovascular Exam: REGULAR RHYTHM, +S1, +S2 - GI/Abdominal Exam GI & Abdominal Exam: Normal Bowel Sounds, Soft, Tenderness. absent: Distended - Extremities Exam Extremities exam: normal inspection - Neurological Exam Neurological exam: Alert, Oriented x3 - Psychiatric Exam Psychiatric exam: Normal Affect, Normal Mood - Skin Skin Exam: Normal Color Discharge Plan - Discharge Medications Prescriptions: Ciprofloxacin [Cipro] 500 mg PO BID #10 tab Docusate [Colace] 100 mg PO DAILY #30 cap Docusate [Colace] 100 mg PO DAILY #60 cap Lactobacillus Acidophilus [Bacid Acidophilus] 1 cap PO DAILY #30 cap Omeprazole 40 mg PO DAILY #60 capsule. Prednisone See Taper PO DAILY 42 Days tab.ds.pk traMADol [Ultram] 50 mg PO Q8 PRN #9 tab PRN Reason: Pain, Moderate (4-7) - Follow Up Plan Condition: GOOD Disposition: HOME/ ROUTINE Instructions: Crohn's Disease (DC) Additional Instructions: Please follow up with your primary care doctor within 3 to 5 days. Please follow up with your GI doctor Dr. Mary at your previously scheduled appointment on April 27. Please take antibiotic Cipro twice a day for 5 days. Please also take prednisone as prescribed over 6 week period, decreasing the dose weekly by 10mg. Please also take colace for constipation daily, and miralax for constipation as needed. Please also take lactobacillus and omeprazole daily. Your iron level was low as well, please take over the counter daily iron. Please return to the emergency room is symptoms reoccur. Referrals: [id number] [Other] <Lacy Arana R - Last Filed: 04/25/18 08:59> Provider - Provider Date of Admission: 04/20/18 19:46 Attending physician: Torres Thurman MD Primary care physician: Andrea Singh [facility] Course - Lab Results Lab Results: Micro Results 04/21/18 14:10 Blood-Venous Blood Culture - Preliminary NO GROWTH AFTER 3 DAYS Most Recent Lab Values WBC 13.3 10^3/ul (4.5-11.0) H 04/22/18 06:30 RBC 3.17 10^6/uL (3.5-6.1) L 04/22/18 06:30 Hgb 9.2 g/dL (12.0-16.0) L 04/22/18 06:30 Hct 29.1 % (36.0-48.0) L 04/22/18 06:30 MCV 91.8 fl (80.0-105.0) 04/22/18 06:30 MCH 29.0 pg (25.0-35.0) 04/22/18 06:30 MCHC 31.6 g/dl (31.0-37.0) 04/22/18 06:30 RDW 13.7 % (11.5-14.5) 04/22/18 06:30 Plt Count 357 10^3/uL (120.0-450.0) 04/22/18 06:30 MPV 7.8 fl (7.0-11.0) 04/22/18 06:30 Gran % 65.5 % (50.0-68.0) 04/22/18 06:30 Lymph % (Auto) 19.7 % (22.0-35.0) L 04/22/18 06:30 [place] % (Auto) 14.5 % (1.0-6.0) H 04/22/18 06:30 Eos % (Auto) 0.1 % (1.5-5.0) L 04/22/18 06:30 Baso % (Auto) 0.2 % (0.0-3.0) 04/22/18 06:30 Gran # 8.71 (1.4-6.5) H 04/22/18 06:30 Lymph # (Auto) 2.6 (1.2-3.4) 04/22/18 06:30 [place] # (Auto) 1.9 (0.1-0.6) H 04/22/18 06:30 Eos # (Auto) 0.0 (0.0-0.7) 04/22/18 06:30 Baso # (Auto) 0.02 K/mm3 (0.0-2.0) 04/22/18 06:30 Differential Comment See pathology report 04/21/18 05:30 ESR 60 mm/hr (0.0-20.0) H 04/21/18 05:30 Retic Count 2.96 % (0.5-1.5) H 04/21/18 05:30 Sodium 138 mmol/L (132-148) 04/22/18 06:30 Potassium 4.0 mmol/L (3.6-5.0) 04/22/18 06:30 Chloride 102 mmol/L (98-107) 04/22/18 06:30 Carbon Dioxide 29 mmol/L (21-33) 04/22/18 06:30 Anion Gap 12 (10-20) 04/22/18 06:30 BUN 9 mg/dL (7-21) 04/22/18 06:30 Creatinine 0.5 mg/dl (0.7-1.2) L 04/22/18 06:30 Est GFR ( Amer) > 60 04/22/18 06:30 Est GFR (Non-Af Amer) > 60 04/22/18 06:30 Random Glucose 122 mg/dL (70-110) H 04/22/18 06:30 Lactic Acid 0.8 mmol/L (0.7-2.1) 04/21/18 06:00 Calcium 8.6 mg/dL (8.4-10.5) 04/22/18 06:30 Phosphorus 4.1 mg/dL (2.5-4.5) 04/21/18 05:30 Magnesium 1.7 mg/dL (1.7-2.2) 04/21/18 05:30 Iron 27 ug/dL (45-180) L 04/21/18 05:30 TIBC 236 ug/dL (265-497) L 04/21/18 05:30 % Saturation 12 % (20-55) L 04/21/18 05:30 Ferritin 65.4 ng/mL 04/21/18 05:30 Total Bilirubin 0.2 mg/dL (0.2-1.3) 04/22/18 06:30 AST 20 U/L (14-36) 04/22/18 06:30 ALT 19 U/L (7-56) 04/22/18 06:30 Alkaline Phosphatase 58 U/L (38-126) 04/22/18 06:30 Total Protein 6.1 g/dL (5.8-8.3) 04/22/18 06:30 Albumin 2.9 g/dL (3.0-4.8) L 04/22/18 06:30 Globulin 3.2 gm/dL 04/22/18 06:30 Albumin/Globulin Ratio 0.9 (1.1-1.8) L 04/22/18 06:30 Lipase < 10 U/L (23-300) L 04/20/18 13:20 Vitamin B12 251 pg/mL (239-931) 04/21/18 05:30 Folate 8.7 ng/mL 04/21/18 05:30 Urine Color Yellow (YELLOW) 04/20/18 14:46 Urine Appearance Clear (CLEAR) 04/20/18 14:46 Urine pH 6.5 (4.7-8.0) 04/20/18 14:46 Ur Specific [place] >= 1.030 (1.005-1.035) 04/20/18 14:46 Urine Protein Trace mg/dL (<30 mg/dL) H 04/20/18 14:46 Urine Glucose (UA) Negative mg/dL (NEGATIVE) 04/20/18 14:46 Urine Ketones Negative mg/dL (NEGATIVE) 04/20/18 14:46 Urine Blood Negative (NEGATIVE) 04/20/18 14:46 Urine Nitrate Negative (NEGATIVE) 04/20/18 14:46 Urine Bilirubin Negative (NEGATIVE) 04/20/18 14:46 Urine Urobilinogen 0.2 E.U./dL (<1 E.U./dL) 04/20/18 14:46 Ur Leukocyte Esterase Negative Mita/uL (NEGATIVE) 04/20/18 14:46 Urine RBC Negative /hpf (0-2) 04/20/18 14:46 Urine WBC 1 - 3 /hpf (0-6) 04/20/18 14:46 Ur Epithelial Cells 1 - 3 /hpf (0-5) 04/20/18 14:46 Urine Bacteria Few (NEG) 04/20/18 14:46 S.cerevisiae IgG Ab 28.8 U H 04/21/18 05:30 S.cerevisiae IgA Ab 28.9 U H 04/21/18 05:30 Attending/Attestation - Attestation I have personally seen and examined this patient.: Yes I have fully participated in the care of the patient.: Yes I have reviewed all pertinent clinical information, including history, physical exam and plan: Yes Notes (Text): Patient seen and examined by me with resident at 10:30AM and again at 12:15PM on 04/22/18. Case including discharge plan discussed with resident. Agree with above with following additions/corrections. Patient is a 22 year old female with past medical history significant for Crohn' s disease that presented to the emergency room with abdominal pain, nausea, and bloody stool. Please see H&P for full details. Patient was admitted with sepsis secondary to IBD and anemia. Patient was started on IV fluids. GI was consulted for possible Crohn's flare. Patient was started on steroids. Patient was also started on Cipro and Flagyl. CT abd/ pelvis per radiologist shows acute colitis involving the left hemicolon, sigmoid colon and rectum with reactive lympadenopathy. Antibiotics were changed to Rocephin and Flagyl. Patient's diet was slowly advanced. However, patient did eat solid food brought in my family even though she was on a liquid diet. She did tolerate this. Patient remained afebrile for the rest of her stay in the hospital. Abdominal pain improved. Patient wanted to go home. Discussed with Dr. Jauregui (GI) by me. Patient was cleared for discharge on 5 days of antibiotics and 6 week taper of steroids. Patient advised to follow up with her GI at her scheduled appointment. Patient was also found to be anemic, likely secondary to iron deficiency. Patient was advised to take over the counter iron and follow-up with primary care doctor for further work up treatment. Patient was also found to have constipation. Was advised to take colace and Miralax. Patient was feeling much better upon discharge. Patient was cleared for discharge by GI. Patient was discharged home. On day of discharge, patient stated she was feeling much better. Abdomianl pain improved. States she is having some cramping but that is secondary to her menstrual period. Patient tolerating diet. No chest pain. No nausea or vomiting. No shortness of breath. No fevers or chills. No headaches or dizziness. No diarrhea. No dsyuria. Physical exam: Gen: Awake and alert sitting up in chair in no acute distress HEENT: Normocephalic, atraumatic. Extraocular muscles intact, pupils equal reactive. No scleral icterus. Oropharynx is pink and moist. Neck is supple. Cardiovascular: Normal rhythm. Normal S1, S2. No murmurs, rubs, or gallops appreciated Pulmonary: Normal respiratory effort. No rhonchi, rales or wheezing appreciated. Gastrointestinal: Soft, mild lower abdominal tenderness, nondistended, positive bowel sounds all 4 quadrants, no guarding. Musculoskeletal: Normal range of motion all extremities. No calf tenderness. No edema appreciated. Central nervous system: AAO x 3. CN 2-12 grossly intact. Dermatologic: Skin warm and dry Please see chart for full details. Follow up instructions. Patient to follow up with primary care doctor within 3 to 5 days. Patient to follow up with her GI doctor Dr. Mary at her previously scheduled appointment on April 27. Patient to take antibiotic Cipro twice a day for 5 days. Patient to take prednisone as prescribed over 6 week period, decreasing the dose weekly by 10mg. Patient to take colace for constipation daily, and miralax for constipation as needed. Patient to take over the counter daily iron. All instructions explained to patient and patient' s mother at bedside in detail. Patient and patient's mother both understand and agree to all instructions. Time spent in discharging the patient including chart review, medication reconciliation, discussion with the patient and patient's mother , medical record administrator, consultants, and nursing staff was greater than 30 minutes.
[2018-04-25 12:18] LABS: ANCA SCREEN POSITIVE (NEGATIVE)
== END 2018-04-22 12:50 | disposition home or self-care (01) | DRG 552 ==
LOC: ED 13:51 → ERH 19:46 → 3RNO 21:22
PROVIDERS: ADMIT Hospitalist; ATTEND Internal Medicine
DX: K51.90 Ulcerative colitis, unspecified, without complications (principal); R65.10 Systemic inflammatory response syndrome (SIRS) of non-infectious origin without acute organ dysfunction; F11.20 Opioid dependence, uncomplicated; D63.8 Anemia in other chronic diseases classified elsewhere; D50.9 Iron deficiency anemia, unspecified; K59.09 Other constipation; Z72.0 Tobacco use